=== PATIENT | male | born 1995 | race Caucasian/White ===

== ENCOUNTER 2021-01-04 16:21 | Emergency (ER) | payer OTHER ==
[~2021-01-04] VITALS: Ht 165.1 cm; Wt 77.1 kg
[~2021-01-04 16:21] MED LIST: BENZTROPINE MESY1 MG PO; CETIRIZINE HCL10 MG PO; CHLORPROMAZINE50 MG PO; CITALOPRAM HBR40 MG PO; CLONIDINE HCL0.1 MG PO; FLUTICASONE P15.8 ML NAS; MELATONIN5 M2 PO; QVAR REDIHALE10.6 G1 INH; RISPERIDONE1 MG PO; TRAZODONE HCL100 MG PO; VITAMIN D31250 MC1 PO; ZIPRASIDONE HCL80 MG PO
== END 2021-01-04 21:18 | disposition home or self-care (01) ==
LOC: ED 16:21
DX: F84.0 Autistic disorder (principal); R27.0 Ataxia, unspecified; Z88.8 Allergy status to other drugs, medicaments and biological substances; Z79.899 Other long term (current) drug therapy
CPT/HCPCS: 70450; 80053; 81001; 85025; 99285-25

== ENCOUNTER 2022-01-24 11:32 | Emergency (ER) | payer OTHER ==
[~2022-01-24] VITALS: Ht 165.1 cm; Wt 77.1 kg
--- OUTSIDE RECORDS SUMMARY | 2022-01-24 11:42 | XMS ---
PreManage Notification: ENIO ROBLES Security Improvement Nurse Events No recent Security Events currently on file CRITERIA MET - ED - Positive COVID-19 Lab Result - [facility] PROVIDERS There are no care providers on record at this time. Nataly has no Care Guidelines for this patient. Erick VISIT COUNT (12 MO.) 1 RAGHAVENDRA Reyes TOTAL 1 NOTE: Visits indicate total known visits. ED/UCC VISIT TRACKING (12 MO.) 01/24/2022 11:34 RAGHAVENDRA Grijalva OR TYPE: Emergency COMPLAINT: - L ANKLE SWOLLEN/BRUISED INPATIENT VISIT TRACKING (12 MO.) No inpatient visits to display in this time frame [email or web address]
[2022-01-24] MEDS ORDERED: QVAR REDIHALE10.6 G1 INH (12:00)
[2022-01-24] MEDS ORDERED: FLUTICASONE PRO16 GM NAS (12:01)
[2022-01-24] MEDS ORDERED: DOCUSATE SODIU100 MG PO (12:03)
[2022-01-24] MEDS ORDERED: HYDROCODON-ACE1 EA10 PO (13:38)
[2022-01-24] MEDS ORDERED: CRUTCHES XX (13:40)
== END 2022-01-24 14:06 | disposition home or self-care (01) ==
LOC: ED 11:32
DX: S82.832A Other fracture of upper and lower end of left fibula, initial encounter for closed fracture (principal); J45.909 Unspecified asthma, uncomplicated; Z79.899 Other long term (current) drug therapy; Z79.51 Long term (current) use of inhaled steroids; X58.XXXA Exposure to other specified factors, initial encounter
CPT/HCPCS: 73610; 99283-25; A9270

== ENCOUNTER 2023-02-03 10:51 | Emergency (ER) | payer OTHER ==
[~2023-02-03] VITALS: Ht 165.1 cm; Wt 70.6 kg
[~2023-02-03 10:51] MED LIST changes: +CRUTCHES XX; +DOCUSATE SODIU100 MG PO; +FLUTICASONE PRO16 GM NAS; +HYDROCODON-ACE1 EA10 PO
== END 2023-02-03 14:44 | disposition home or self-care (01) ==
LOC: ED 10:51
DX: S00.81XA Abrasion of other part of head, initial encounter (principal); J45.909 Unspecified asthma, uncomplicated; W01.10XA Fall on same level from slipping, tripping and stumbling with subsequent striking against unspecified object, initial encounter; Z88.8 Allergy status to other drugs, medicaments and biological substances; Z79.899 Other long term (current) drug therapy
CPT/HCPCS: 70450; 99283-25